=== PATIENT | male | born 1980 | race Hispanic/Latino ===

== ENCOUNTER 2017-12-29 13:38 | Emergency (ER) | payer OTHER ==
[2017-12-29 13:49] VITALS: BMI 30.2
[2017-12-29] MEDS ORDERED: Lidocaine 2% Inj (20ml) SC STA (13:57)
--- NOTE | 2017-12-29 14:05 | ED PDOC ---
Arrival/HPI - General Chief Complaint: Abnormal Skin Integrity Time Seen by Provider: 12/29/17 13:41 Historian: Patient - History of Present Illness Narrative History of Present Illness (Text): 12/29/17 14:02 37 year old male, with no significant past medical history, who presents to the emergency department complaining of laceration to left 3rd and 4th digit. 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 Patient states hsi tetanus is up to date. Patient denies any fever, chills, chest pain, shortness of breath, nausea, vomiting, diarrhea, back pain, neck pain, headache, dizziness, or any other complaints. PMD: [facility] Time/Duration: Prior to Arrival Symptom Onset: Sudden Symptom Course: Unchanged Activities at Onset: Light Context: Work Past Medical History - Provider Review Nursing Documentation Reviewed: Yes - Infectious Disease Hx of Infectious Diseases: None - Psychiatric Hx Substance Use: No - Anesthesia Hx Anesthesia Reactions: No Hx Malignant Hyperthermia: No Family/Social History - Physician Review Nursing Documentation Reviewed: Yes Family/Social History: Unknown Family HX Smoking Status: Former Smoker Hx Alcohol Use: No Hx Substance Use: No Allergies/Home Meds Allergies/Adverse Reactions: Allergies lactose Adverse Reaction (Verified 12/29/17 13:49) DIARRHEA Review of Systems - Physician Review All systems were reviewed & negative as marked: Yes - Review of Systems Constitutional: Normal Eyes: Normal ENT: Normal Respiratory: Normal. absent: SOB, Cough Cardiovascular: Normal. absent: Chest Pain Gastrointestinal: Normal. absent: Abdominal Pain Genitourinary Male: Normal. absent: Dysuria, Frequency, Hematuria Musculoskeletal: Normal. absent: Back Pain, Neck Pain Skin: Laceration (3rd and 4th digit of left hand). absent: Rash Neurological: Normal. absent: Headache, Dizziness Endocrine: Normal Hemo/Lymphatic: Normal Psychiatric: Normal Physical Exam Temperature: Afebrile Blood Pressure: Normal Pulse: Regular Respiratory Rate: Normal Appearance: Positive for: Well-Appearing, Non-Toxic, Comfortable Pain Distress: None Mental Status: Positive for: Alert and Oriented X 3 - Systems Exam Head: Present: Atraumatic, Normocephalic Pupils: Present: PERRL Extroacular Muscles: Present: EOMI Conjunctiva: Present: Normal Mouth: Present: Moist Mucous Membranes Neck: Present: Normal Range of Motion. No: MIDLINE TENDERNESS Respiratory/Chest: Present: Clear to Auscultation, Good Air Exchange. No: Respiratory Distress, Accessory Muscle Use Cardiovascular: Present: Regular Rate and Rhythm, Normal S1, S2. No: Murmurs Abdomen: No: Tenderness, Distention, Peritoneal Signs Back: Present: Normal Inspection. No: CVA Tenderness, Midline Tenderness Upper Extremity: Present: Normal Inspection. No: Cyanosis, Edema Lower Extremity: Present: Normal Inspection. No: Edema Neurological: Present: GCS=15, CN II-XII Intact, Speech Normal, Motor Func Grossly Intact, Normal Sensory Function, Gait Normal, Memory Normal, Normal 2Pt Descrimination Skin: Present: Warm, Dry, Laceration (1/2 cm laceration on knuckle of 3rd digit of left hand; 2.5cm laceration on 4th digit of left hand - muscle tear; tendons intact; strength intact, proximal and distal joint strength intact). No: Rashes Psychiatric: Present: Alert, Oriented x 3, Normal Insight, Normal Concentration Medical Decision Making ED Course and Treatment: 12/29/17 14:08 Impression: 37 year old male presents to the Emergency department complaining of laceration to 3rd and 4th digit of left hand. Plan: -- Xray left hand -- Lidocaine -- Reassess and disposition Progress Notes: 12/29/17 15:32 Xray left hand reviewed, shows: IMPRESSION: No fracture or foreign body Case was discussed with Dr. Deanna Bass, Hand Surgeon, who will have his resident Virgilio Euceda suture the laceration. See consult/procedure note. Patient was instructed to follow up with Dr. Bass in 1 week for suture removal and reevaluation. Patient was advised to return to the ED if he is unable to get follow up and for us to remove sutures. Patient feels much better after laceration repair. He denies any numbness or weakness. He was advised to return if he develops redness, swelling or pus drainage from the wound. No antibiotics were recommended on consult. Wound was cleaned thoroughly with betadye and Sterile water. - RAD Interpretation Radiology Orders: 12/29/17 13:57 HAND LEFT 3 VIEWS ROUTINE [RAD] Stat - Medication Orders Current Medication Orders: Lidocaine HCl (Lidocaine 2% 20ml Vial) 1 ml SC ONCE STA Stop: 12/29/17 13:58 - Scribe Statement The provider has reviewed the documentation as recorded by the Scribe Raya Leonelin All medical record entries made by the Arnaud were at my direction and personally dictated by me. I have reviewed the chart and agree that the record accurately reflects my personal performance of the history, physical exam, medical decision making, and the department course for this patient. I have also personally directed, reviewed, and agree with the discharge instructions and disposition. Disposition/Present on Arrival - Present on Arrival Any Indicators Present on Arrival: No History of DVT/PE: No History of Uncontrolled Diabetes: No Urinary Catheter: No History of Decub. Ulcer: No History Surgical Site Infection Following: None - Disposition Have Diagnosis and Disposition been Completed?: Yes Diagnosis: Finger laceration Disposition: HOME/ ROUTINE Disposition Time: 16:49 Patient Plan: Discharge Condition: IMPROVED Discharge Instructions (ExitCare): Laceration Repair Additional Instructions: MOLINA RICCI, thank you for letting us take care of you today. Your provider was Dax Kerns DO and you were treated for FINGER Laceration. The emergency medical care you received today was directed at your acute symptoms. If you were prescribed any medication, please fill it and take as directed. It may take several days for your symptoms to resolve. Return to the Emergency Department if your symptoms worsen, do not improve, or if you have any other problems. Follow up with Dr. Svetlana Bass in 1 week for evaluate and suture removal. Return to the ED if symptoms worsen, pus, redness, fever or any other concern. Please contact your doctor or call one of the physicians/clinics you have been referred to that are listed on the Patient Visit Information form that is included in your discharge packet. Bring any paperwork you were given at discharge with you along with any medications you are taking to your follow up visit. Our treatment cannot replace ongoing medical care by a primary care provider outside of the emergency department. Thank you for allowing the [facility] team to be part of your care today. If you had an X-Ray or CT scan: A Radiologist will review the ED reading if any change in treatment is needed we will contact you. If you had a blood, urine, or wound culture: It will take several days for the results, if any change in treatment is needed we will contact you. If you had an STI test: It will take 48 hours for the results. Please call after 1 week if you have not heard back. Prescriptions: Ibuprofen [Motrin] 600 mg PO Q6 PRN #30 tab PRN Reason: Pain, Moderate (4-7) Referrals: Svetlana Bass MD [Staff Provider] - Follow up with primary Forms: [facility] (Serbian), WORK NOTE
--- NOTE | 2017-12-29 15:21 | RAD ---
PROCEDURE: Left Hand Radiographs. HISTORY: hand laceration r/o fb r/o fx COMPARISON: None. FINDINGS: BONES: Normal. No fracture. JOINTS: Normal. No osteoarthritic changes. SOFT TISSUES: Normal. OTHER FINDINGS: There is a laceration of the 4th digit. There is no visible foreign body. IMPRESSION: No fracture or foreign body
--- NOTE | 2017-12-29 16:54 | CP.PCM.CON ---
History of Present Illness - History of Present Illness History of Present Illness: Hand Consult For Dr. Bass 37M with no PMH presents 4 hours after he cut his finger with a utility knife. He reports that he has sensation distal to the finger denies any motor deficits or numbeness or tingling. 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 H denies any substance abuse when it happens and reports that his hand slipped. He denies any another symptoms like fevers chills or chest pain PMH: Denies PSH: Herni repair as a chils ALL: NKDA Meds: None Social: Denies vices Review of Systems - Review of Systems All systems: reviewed and no additional remarkable complaints except Review of Systems: Laceration to the finger Past Patient History - Infectious Disease Hx of Infectious Diseases: None - Past Social History Smoking Status: Former Smoker - PSYCHIATRIC Hx Substance Use: No - SURGICAL HISTORY Hx Herniorrhaphy: Yes (at age 3) - ANESTHESIA Hx Anesthesia Reactions: No Hx Malignant Hyperthermia: No Meds Allergies/Adverse Reactions: Allergies Allergy/AdvReac Type Severity Reaction Status Date / Time lactose AdvReac DIARRHEA Verified 12/29/17 13:49 Physical Exam - Constitutional Appears: Non-toxic, No Acute Distress - Head Exam Head Exam: ATRAUMATIC, NORMOCEPHALIC - Eye Exam Eye Exam: EOMI, Normal appearance - ENT Exam ENT Exam: Mucous Membranes Moist - Respiratory Exam Respiratory Exam: NORMAL BREATHING PATTERN - Cardiovascular Exam Cardiovascular Exam: +S1, +S2 - Extremities Exam Additional comments: Laceration to the left 3rd digit from the PIP to the DIP on the dorsal aspect of the hand. Assessment & Plan - Assessment and Plan (Free Text) Assessment: 37M with finger lac 4cc of lidcane was infiltrated to block the right 3rd digit. 2 X 3-0 prolene sutures were used to repair the laceration. Patient instructed to followup in [address] Bass for suture removal
[2017-12-29 17:56] VITALS: BP 132/72; PULSE 82; RESP 16; TEMP 98.6; O2SAT 99
== END 2017-12-29 16:49 | disposition home or self-care (01) ==
LOC: ED 13:38
DX: S61.213A Laceration without foreign body of left middle finger without damage to nail, initial encounter (principal); W26.0XXA Contact with knife, initial encounter; Z87.891 Personal history of nicotine dependence